=== PATIENT | male | born 1995 | race Caucasian/White ===

== ENCOUNTER 2018-10-29 17:05 | Emergency (ER) | payer OTHER ==
--- NOTE | 2018-10-29 17:30 | ED Physician Chart ---
ED Chief Complaint/HPI - Patient Information Date Seen:: 10/29/18 Time Seen:: 17:25 Chief Complaint:: rt ankle knee pain History of Present Illness:: 23 yr old male who yesterday was horrsing around with his biddy in the yard and twisted his left ankle and foot with pain alsort knee pain no deformities or major swelling Allergies:: Allergies Allergy/AdvReac Type Severity Reaction Status Date / Time No Known Allergies Allergy Verified 10/29/18 17:16 Vitals:: Vital Signs - 8 hr 10/29/18 17:16 Temp 98.5 F HR 119 RR 18 BP 135/51 O2 Sat % 99 ED Review of Systems - Review of Systems General/Constitutional: No fever, No chills, No weight loss, No weakness, No diaphoresis, No edema, No loss of appetite Skin: No skin lesions, No rash, No bruising Head: No headache, No light-headedness Eyes: No loss of vision, No pain, No diplopia ENT: No earache, No nasal drainage, No sore throat, No tinnitus Neck: No neck pain, No swelling, No thyromegaly, No stiffness, No mass noted Cardio Vascular: No chest pain, No palpitations, No PND, No orthopnea, No edema Pulmonary: No SOB, No cough, No sputum, No wheezing GI: No nausea, No vomiting, No diarrhea, No pain, No melena, No hematochezia, No constipation, No hematemesis G/U: No dysuria, No frequency, No hematuria Musculoskeletal: Bone or joint pain Endocrine: No polyuria, No polydipsia Psychiatric: No prior psych history, No depression, No anxiety, No suicidal ideation Hematopoietic: No bruising, No lymphadenopathy Allergic/Immuno: No urticaria, No angioedema Neurological: No syncope, No focal symptoms, No weakness, No paresthesia, No headache, No seizure, No dizziness, No confusion, No vertigo ED Past Medical History - Past Medical History Past Medical History: No significant medical hx Family Medical History - Family Member Mother History Unknown: Yes ED Physical Exam - Physical Examination Head: Atraumatic Eyes: Lids, conjuctiva normal Other Skin comments:: small abrasion top of middle toe Neck: Nontender Respiratory: Nl effort/Exclusion Cardio Vascular: RRR GI: No tenderness/rebounding/guarding Other Extremities comments:: tenderness post ankle area Neuro/Psych: Alert/oriented ED Septic Shock - . Is Septic Shock (SBP<90, OR Lactate>4 mmol\L) present?: No - <6hrs of presentation: Vital Signs: Vital Signs - 8 hr 10/29/18 17:16 Temp 98.5 F HR 119 RR 18 BP 135/51 O2 Sat % 99
--- NOTE | 2018-10-30 07:56 | Diagnostic Imaging Report ---
Right knee ((3 views) HISTORY: Pain No acute abnormalities. No fractures. Joint spaces appear normal. Small sclerotic density noted within the lateral femoral condyle. The findings consistent with an incidental benign "bone island". IMPRESSION: No acute abnormalities
--- NOTE | 2018-10-30 07:56 | Diagnostic Imaging Report ---
Right ankle (3 views) HISTORY: Pain The exam demonstrates mildly displaced comminuted fracture of the distal fibula. Joint spaces appear normal. IMPRESSION: 1. Mildly displaced fracture distal fibula
--- NOTE | 2018-10-30 07:57 | Diagnostic Imaging Report ---
Right foot (3 views) HISTORY: Pain Mildly displaced comminuted fracture of the distal fibula seen. No abnormality seen within the foot. Joint spaces appear normal. IMPRESSION: 1. Distal fibular fracture 2. No other focal abnormalities within the right foot.
== END 2018-10-29 19:03 | disposition home or self-care (01) ==
LOC: ER 17:05
DX: S82.831A Other fracture of upper and lower end of right fibula, initial encounter for closed fracture (principal); X50.1XXA Overexertion from prolonged static or awkward postures, initial encounter; Y93.89 Activity, other specified; Y92.89 Other specified places as the place of occurrence of the external cause; Y99.8 Other external cause status
CPT/HCPCS: 73560-TC-RT; 73600-TC-RT; 73620-TC-RT; Z7502; Z7610